=== PATIENT | male | born 1980 ===

== ENCOUNTER 2024-07-01 06:00 | Day surgery (SDC) | payer OTHER ==
[2024-07-01] MEDS ORDERED: MIDAZOLAM HCL/PF 5 MG/ML VIAL IV ONE (08:15)
[2024-07-01] MEDS ORDERED: DIPHENHYDRAMINE HCL 50 MG/ML VIAL 1ML IV ONE (08:15)
[2024-07-01] MEDS ORDERED: MEPERIDINE HCL/PF 50 MG/ML VIAL IV ONE (08:15)
[2024-07-01] MEDS ORDERED: PEPCID AC20 MG PO (08:19)
== END 2024-07-01 11:00 | disposition home or self-care (01) ==
LOC: AMB-ENDOS 06:00
PROVIDERS: ATTEND Surgery
DX: K29.60 Other gastritis without bleeding (principal); K44.9 Diaphragmatic hernia without obstruction or gangrene